=== PATIENT | female | born 1995 | race Caucasian/White ===

== ENCOUNTER 2019-04-15 09:50 | Emergency (ER) | payer BC ==
[~2019-04-15] VITALS: Ht 160 cm; Wt 52.2 kg
[~2019-04-15 09:50] MED LIST: IBUPROFEN 800800 M1 PO; NOHOMEMEDICATIONS
[2019-04-15] MEDS ORDERED: SERTRALINE HCL50 MG PO (09:58)
[2019-04-15 10:10] LABS: URINE BILIRUBIN NEGATIVE (Negative); URINE BLOOD TRACE (Negative); URINE CLARITY CLEAR; URINE COLOR YELLOW; URINE GLUCOSE-RANDOM NEGATIVE (Negative); URINE KETONES NEGATIVE (Negative); URINE NITRITE-REFLEX NEGATIVE (Negative); URINE PROTEIN TRACE (Negative); URINE SPECIFIC GRAVITY >= 1.030 (1.005-1.030); URINE UROBILINOGEN 0.2 E.U./dl (0.2-1.0)
[2019-04-15 10:13] LABS: URINE LEUKOCYTES-REFLEX 3+ (Negative)
[2019-04-15 10:20] LABS: HEMATOCRIT 45.8 % (37.0-47.0); HEMOGLOBIN 15.6 gm/dL (12.0-15.0); MCH 31.5 pg (26.0-34.0); MCV 92.5 fL (80.0-100.0); MPV 9.5 fl. (7.2-11.1); NUCLEATED RBCS 0 /100WBC; PLATELET COUNT* 273 thou/uL (150-400); RBC 4.96 mil/uL (4.20-5.00); RDW-CV 13.1 % (10.5-14.5); WBC 16.9 thou/uL (4.0-11.0)
[2019-04-15 10:29] LABS: CASTS None Seen /LPF (None Seen); CRYSTALS None Seen /LPF (None Seen); MUCUS None Seen strn/LPF (None Seen); SQUAMOUS >10 Many /LPF (0-3); URINE RBC 3-10 Few /HPF (0-2)
[2019-04-15 10:38] LABS: CALCIUM 8.8 mg/dL (8.5-10.1); CREATININE 0.7 mg/dL (0.6-1.3); POTASSIUM 3.4 mmol/L (3.5-5.1)
[2019-04-15 10:42] LABS: ALBUMIN 4.4 g/dL (3.4-5.0); TOTAL BILIRUBIN 0.3 mg/dL (<0.1-1.0); TOTAL PROTEIN 8.5 g/dL (6.4-8.2)
[2019-04-15 11:06] LABS: ABSOLUTE NEUTROPHILS 13.9 thou/uL (1.6-8.1); METAMYELOCYTES 1 %; PLATELET ESTIMATE ADEQUATE
[2019-04-15] MEDS ORDERED: CIPRO500 MG PO (12:29)
[2019-04-15] MEDS ORDERED: ZOFRAN ODT4 MG PO (12:29)
[2019-04-15] MEDS ORDERED: LOPERAMIDE 2 MG2 M1 PO (12:29)
[2019-04-15 12:50] VITALS: BP 109/68
== END 2019-04-15 12:52 | disposition home or self-care (01) ==
LOC: M.ERS 09:50
PROVIDERS: Personal Emergency Response Attendant
DX: K52.9 Noninfective gastroenteritis and colitis, unspecified (principal); N39.0 Urinary tract infection, site not specified; N83.201 Unspecified ovarian cyst, right side; Z88.0 Allergy status to penicillin

== ENCOUNTER 2020-01-05 12:23 | Emergency (ER) | payer OTHER ==
[~2020-01-05] VITALS: Ht 160 cm; Wt 54.4 kg
[~2020-01-05 12:23] MED LIST changes: +CIPRO500 MG PO; +LOPERAMIDE 2 MG2 M1 PO; +SERTRALINE HCL50 MG PO; +ZOFRAN ODT4 MG PO
[2020-01-05 13:12] LABS: HEMATOCRIT 41.3 % (37.0-47.0); HEMOGLOBIN 14.2 gm/dL (12.0-15.0); MCH 31.8 pg (26.0-34.0); MCHC 34.3 g/dL (28.0-37.0); MCV 92.7 fL (80.0-100.0); MPV 9.3 fl. (7.2-11.1); NUCLEATED RBCS 0 /100WBC; PLATELET COUNT* 247 thou/uL (150-400); RBC 4.45 mil/uL (4.20-5.00); RDW-CV 12.9 % (10.5-14.5); WBC 15.7 thou/uL (4.0-11.0)
[2020-01-05 13:23] LABS: CREATININE 0.8 mg/dL (0.6-1.3); POTASSIUM 3.6 mmol/L (3.5-5.1)
[2020-01-05 13:40] LABS: ABSOLUTE BASOPHILS 0.2 thou/uL (0.0-0.2); ABSOLUTE LYMPHOCYTES 2.8 thou/uL (0.8-5.3); ABSOLUTE MONOCYTES 0.8 thou/uL (0.0-1.2); ABSOLUTE NEUTROPHILS 11.9 thou/uL (1.6-8.1)
[2020-01-05 13:41] LABS: PLATELET ESTIMATE ADEQUATE
[2020-01-05] MEDS ORDERED: NAPROSYN500 MG PO (14:41)
[2020-01-05] MEDS ORDERED: ZANAFLEX4 MG PO (14:41)
[2020-01-05 15:19] VITALS: BP 114/71
== END 2020-01-05 15:20 | disposition home or self-care (01) ==
LOC: M.ERS 12:23
PROVIDERS: Nurse Practitioner Family
DX: S06.0X0A Concussion without loss of consciousness, initial encounter (principal); S16.1XXA Strain of muscle, fascia and tendon at neck level, initial encounter; S40.021A Contusion of right upper arm, initial encounter; S70.12XA Contusion of left thigh, initial encounter; S70.11XA Contusion of right thigh, initial encounter; M25.511 Pain in right shoulder; F32.9 Major depressive disorder, single episode, unspecified; F41.9 Anxiety disorder, unspecified; Z88.0 Allergy status to penicillin; Z79.899 Other long term (current) drug therapy; Y04.0XXA Assault by unarmed brawl or fight, initial encounter; Y93.89 Activity, other specified; Y92.89 Other specified places as the place of occurrence of the external cause; Y99.8 Other external cause status

== ENCOUNTER 2021-02-25 18:31 | Emergency (ER) | payer OTHER, MEDICAID ==
[~2021-02-25] VITALS: Ht 157.5 cm; Wt 68.0 kg
[~2021-02-25 18:31] MED LIST changes: +NAPROSYN500 MG PO; +ZANAFLEX4 MG PO
[2021-02-25] MEDS ORDERED: XANAX 0.5 MG0.5 MG PO (21:38)
[2021-02-25] MEDS ORDERED: ALPRAZOLAM 0.50.5 M1 PO (21:43)
[2021-02-25 21:52] VITALS: BP 138/84
--- NOTE | 2021-02-26 09:56 | EKG ---
[place] [address] ELECTROCARDIOGRAM REPORT Name: JIMMY HERNANDEZ Room: [facility]#: [id number] Admission: 02/25/21 Attend Phys: Discharge: 02/25/21 Date of : [birth year] Date of Service: 02/25/211841 Report #: [id number] THIS REPORT FOR: //name// [facility] ED Test Date: 2021-02-25 Test Time: 18:42:02 Pat Name: JIMMY HERNANDEZ Department: Room: Gender: F Reservation Manager: DSAlea : 1995 Requested By: Saundra Owen Order Number: [id number] MD: Qamar Moscoso Measurements Intervals [place] Rate: 143 P: 75 MO: 126 QRS: 84 QRSD: 85 T: -16 QT: 275 QTc: 424 Interpretive Statements Sinus tachycardia Multiple premature complexes supraven Consider right atrial enlargement Borderline repolarization abnormality No previous ECG available for comparison Electronically Signed On 02-26-2021 9:55:47 CDT by Qamar Moscoso [email or web address] <ELECTRONICALLY SIGNED> By: Qamar Moscoso MD, [facility] 02/26/21 0955 1842 1842 Qamar Moscoso MD, [facility] /EPI
== END 2021-02-25 21:52 | disposition home or self-care (01) ==
LOC: M.ERS 18:31
DX: F41.0 Panic disorder [episodic paroxysmal anxiety] (principal); F32.9 Major depressive disorder, single episode, unspecified; Z88.0 Allergy status to penicillin

== ENCOUNTER 2021-03-29 11:44 | Emergency (ER) | payer OTHER, MEDICAID ==
[~2021-03-29] VITALS: Ht 160 cm; Wt 52.2 kg
[~2021-03-29 11:44] MED LIST changes: +ALPRAZOLAM 0.50.5 M1 PO; +XANAX 0.5 MG0.5 MG PO
[2021-03-29 13:34] LABS: ABSOLUTE LYMPHOCYTES 1.7 thou/uL (0.8-5.3); ABSOLUTE MONOCYTES 0.6 thou/uL (0.0-1.2); ABSOLUTE NEUTROPHILS 8.1 thou/uL (1.6-8.1); BASOPHILS 0.4 %; EOSINOPHILS 0.2 %; HEMATOCRIT 45.3 % (37.0-47.0); HEMOGLOBIN 15.3 gm/dL (12.0-15.0); LYMPHOCYTES 16.5 %; MCH 30.7 pg (26.0-34.0); MCHC 33.7 g/dL (28.0-37.0); MCV 91.1 fL (80.0-100.0); MONOCYTES 6.1 %; NUCLEATED RBCS 0 /100WBC; PLATELET COUNT* 226 thou/uL (150-400); POLYS 76.8 %; RBC 4.97 mil/uL (4.20-5.00); RDW-CV 12.8 % (10.5-14.5); WBC 10.5 thou/uL (4.0-11.0)
--- NOTE | 2021-03-29 13:38 | EKG ---
[place] [address] ELECTROCARDIOGRAM REPORT Name: JIMMY HERNANDEZ Room: [facility]#: [id number] Admission: 03/29/21 Attend Phys: Discharge: Date of : [birth year] Date of Service: 03/29/21 1314 Report #: [id number] THIS REPORT FOR: //name// [facility] ED Test Date: 2021-03-29 Test Time: 13:14:32 Pat Name: JIMMY HERNANDEZ Department: Room: Gender: [employer] Engineer: MAGGIE : 1995 Requested By: Lluvia Cid Order Number: [id number] MD: Jerry Jameson Measurements Intervals [place] Rate: 102 P: 63 CA: 123 QRS: 76 QRSD: 90 T: -28 QT: 332 QTc: 433 Interpretive Statements Sinus tachycardia with sinus arrhythmia Borderline T abnormalities, inferior leads Baseline wander in lead(s) II,III,aVF Compared to ECG 02/25/2021 18:42:02 T-wave abnormality now present Electronically Signed On 03-29-2021 13:38:40 CDT by Jerry Jameson [email or web address] <ELECTRONICALLY SIGNED> By: Jerry Jameson MD, FAC 03/29/21 1338 1314 1314 Jerry Jameson MD, FAC /EPI
[2021-03-29 13:44] LABS: CALCIUM 9.2 mg/dL (8.5-10.1); CREATININE 0.8 mg/dL (0.6-1.3); POTASSIUM 3.9 mmol/L (3.5-5.1)
[2021-03-29 13:49] LABS: ALBUMIN 4.6 g/dL (3.4-5.0); TOTAL BILIRUBIN 0.5 mg/dL (<0.1-1.0); TOTAL PROTEIN 8.2 g/dL (6.4-8.2)
[2021-03-29] MEDS ORDERED: MECLIZINE HCL25 MG PO (15:41)
[2021-03-29 15:50] VITALS: BP 120/78
== END 2021-03-29 15:51 | disposition home or self-care (01) ==
LOC: M.ERS 11:44
PROVIDERS: Nurse Practitioner Family
DX: H81.10 Benign paroxysmal vertigo, unspecified ear (principal); F41.9 Anxiety disorder, unspecified; F32.9 Major depressive disorder, single episode, unspecified; Z88.0 Allergy status to penicillin